=== PATIENT | female | born 1955 | race Two or more races ===

== ENCOUNTER → 2022-11-29 15:47 | Outpatient (CLI) | payer OTHER ==
[2022-11-29 16:33] LABS: INR 1.04; PROTHROMBIN TIME 10.9 SECONDS (9.0-11.5)
== END | disposition home or self-care (01) ==
LOC: LAB 15:47
PROVIDERS: ATTEND Internal Medicine Geriatric Medicine
DX: D68.9 Coagulation defect, unspecified (principal)

== ENCOUNTER 2022-12-02 05:10 | Day surgery (SDC) | payer OTHER | END 2022-12-02 13:40 | disposition home or self-care (01) | LOC: CIR.AMB 05:10 | PROVIDERS: ATTEND Plastic Surgery Surgery of the Hand | DX: N65.1 Disproportion of reconstructed breast (principal); T85.42XA Displacement of breast prosthesis and implant, initial encounter ==